=== PATIENT | male | born 1990 | race Two or more races ===

== ENCOUNTER 2023-04-09 18:29 | Emergency (ER) | payer OTHER ==
[~2023-04-09] VITALS: Ht 177.8 cm; Wt 78.0 kg
[2023-04-09 20:37] LABS: HEMATOCRIT 41.6 % (39.0-48.0); HEMOGLOBIN 13.5 g/dL (13-16.00); MEAN CELL VOLUME 83.7 fL (80.0-100.00); MEAN CORPUSCULAR HEMOGLOBIN 27.2 pg (27.00-32.0); MEAN CORPUSCULAR HGB CONC 32.5 g/dl (32.0-36.0); PLATELET COUNT 155 K/uL (150-450); RED BLOOD COUNT 4.97 M/uL (4.00-6.00); RED CELL DISTRIBUTION WIDTH 13.6 % (11.5-14.5)
[2023-04-09 20:56] LABS: CALCIUM 8.6 mg/dL (8.5-10.1); CREATININE SERUM 1.08 mg/dL (0.70-1.30); GFR 77.81; POTASSIUM 3.92 mEq/L (3.5-5.1)
[2023-04-09 21:28] LABS: URINE APPEARANCE Clear; URINE BILIRRUBIN Negative (NEGATIVE); URINE BLOOD Negative; URINE COLOR Yellow; URINE GLUCOSE Negative (NEGATIVE); URINE LEUKOCYTE Negative; URINE NITRATE Negative; URINE PROTEIN Negative (NEGATIVE); URINE UROBILINOGEN 0.2 E.U./dl
[2023-04-09 21:30] LABS: URINE BACTERIA 6.2 uL (0.0-1933); URINE WBC 8.9 uL (0.0-23.2)
[2023-04-09 21:31] LABS: URINE EPITHELIAL CELLS 1.2 uL (0.0-38.8)
[2023-04-09] MEDS ORDERED: DICLOFENAC POTA50 MG PO (23:55)
[2023-04-09] MEDS ORDERED: NORFLEX100MG PO (23:55)
== END 2023-04-10 00:56 | disposition home or self-care (01) ==
LOC: ER 18:29
PROVIDERS: General Practice
DX: R10.9 Unspecified abdominal pain (principal); Z87.442 Personal history of urinary calculi; M54.9 Dorsalgia, unspecified; N20.0 Calculus of kidney; K65.4 Sclerosing mesenteritis

== ENCOUNTER → 2023-06-09 | Emergency (ER) | payer OTHER ==
[~2023-06-09] VITALS: Ht 177.8 cm; Wt 79.4 kg
[~2023-06-09] MED LIST: DICLOFENAC POTA50 MG PO; NORFLEX100MG PO
== END | disposition home or self-care (01) ==
LOC: ER 12:06
DX: M25.561 Pain in right knee (principal)